=== PATIENT | male | born 1965 ===

== ENCOUNTER 2017-02-27 15:44 | Emergency (ER) | payer OTHER ==
[2017-02-27 15:58] VITALS: TEMP 98.3
[2017-02-27] MEDS ORDERED: Sodium Chloride 0.9% 1,000 ML IV STA (16:22)
[2017-02-27] MEDS ORDERED: Thiamine 100 mg/ml Inj IV STA (16:22)
--- NOTE | 2017-02-27 16:28 | ED PDOC ---
Arrival/HPI - General Historian: EMS EM Caveat: Acuity of Condition <Case Dorado - Last Filed: 02/27/17 20:22> <Tex Salas - Last Filed: 02/28/17 07:37> - General Chief Complaint: Alcohol Ingestion Time Seen by Provider: 02/27/17 16:16 - History of Present Illness Narrative History of Present Illness (Text): 02/27/17 16:20 A 43 year old male is brought into the emergency department via EMS after being found outside crawling on his hands and knee. HPI and ROS is limited due to patient's condition. (Case Dorado) Past Medical History - Provider Review Nursing Documentation Reviewed: Yes - Infectious Disease Hx of Infectious Diseases: None - Psychiatric Hx Substance Use: No <Case Dorado - Last Filed: 02/27/17 20:22> Family/Social History - Physician Review Nursing Documentation Reviewed: Yes Family/Social History: Unknown Family HX Smoking Status: Unknown If Ever Smoked Hx Alcohol Use: Yes Hx Substance Use: No <Case Dorado - Last Filed: 02/27/17 20:22> Allergies/Home Meds <Case Dorado - Last Filed: 02/27/17 20:22> <Tex Salas - Last Filed: 02/28/17 07:37> Allergies/Adverse Reactions: Allergies Unobtainable Allergy (Verified 02/27/17 16:13) Home Medications: Home Meds Medication Instructions Recorded Confirmed Unobtainable 02/27/17 02/27/17 Review of Systems - Review of Systems Systems not reviewed;Unavailable: Acuity of Condition <Case Dorado - Last Filed: 02/27/17 20:22> Physical Exam Vital Signs Reviewed: Yes Temperature: Afebrile Blood Pressure: Normal Pulse: Regular Respiratory Rate: Normal Appearance: Positive for: Well-Appearing, Non-Toxic, Comfortable Pain Distress: None Mental Status: Positive for: other (Awakes to notch painful stimuli) - Systems Exam Head: Present: Atraumatic, Normocephalic Pupils: Present: Other (dilated) Extroacular Muscles: Present: EOMI Conjunctiva: Present: Normal Mouth: Present: Moist Mucous Membranes Neck: Present: Normal Range of Motion Respiratory/Chest: Present: Clear to Auscultation, Good Air Exchange. No: Respiratory Distress, Accessory Muscle Use Cardiovascular: Present: Regular Rate and Rhythm, Normal S1, S2. No: Murmurs Abdomen: Present: Normal Bowel Sounds. No: Tenderness, Distention, Peritoneal Signs Upper Extremity: Present: Normal Inspection. No: Cyanosis, Edema Lower Extremity: Present: Normal Inspection. No: Edema Neurological: Present: GCS=15, CN II-XII Intact, Speech Normal, Other (no focal deficit; patient is able to move all 4 extremities without difficulty) Skin: Present: Warm, Dry, Normal Color. No: Rashes Psychiatric: Present: Alert, Other (awakes to notch painful stimuli) <Case Dorado - Last Filed: 02/27/17 20:22> Medical Decision Making - Lab Interpretations I have reviewed the lab results: Yes <Case Dorado - Last Filed: 02/27/17 20:22> <Tex Salas - Last Filed: 02/28/17 07:37> ED Course and Treatment: EKG: Ordered, reviewed, and independently interpreted the EKG. Rate : 77 BPM Rhythm : NSR Interpretation : Normal intervals, normal axis, no acute ischemia 02/27/17 20:22 Chest X-ray: As read by me, no acute findings. (Case Dorado) 02/28/17 07:29 Case was endorsed from pending sobriety.Pt.currently sober awake, alert.No complaints offered.Results of pts. CT scan are chronic.No change from previous.Pt. is aware of his scan results.Pt. to follow up with his PMD. ( Tex Salas) - Lab Interpretations Lab Results: 02/27/17 16:55 02/27/17 16:55 Lab Results 02/27/17 17:20: Urine Opiates Screen Negative, Urine Methadone Screen Negative, Ur Barbiturates Screen Negative, Ur Phencyclidine Scrn Negative, Ur Amphetamines Screen Negative, U Benzodiazepines Scrn Negative, U Oth Cocaine Metabols Negative, U Cannabinoids Screen Negative 02/27/17 17:20: Urine Color Yellow, Urine Appearance Clear, Urine pH 6.5, Ur Specific [place] <= 1.005, Urine Protein Negative, Urine Glucose (UA) Negative, Urine Ketones Negative, Urine Blood Negative, Urine Nitrate Negative, Urine Bilirubin Negative, Urine Urobilinogen 0.2, Ur Leukocyte Esterase Negative 02/27/17 16:55: Alcohol, Quantitative 464 H* 02/27/17 16:55: Salicylates < 1 L, Acetaminophen < 10.0 L 02/27/17 16:55: Sodium 148, Potassium 2.9 L*, Chloride 110 H, Carbon Dioxide 22 , Anion Gap 19, BUN 7, Creatinine 0.9, Est GFR ( Amer) > 60, Est GFR (Non -Af Amer) > 60, Random Glucose 107, Calcium 8.3 L, Total Bilirubin 0.3, AST 78 H , ALT 54, Alkaline Phosphatase 63, Total Creatine Kinase 72, Total Protein 7.3, Albumin 3.9, Globulin 3.4, Albumin/Globulin Ratio 1.1 02/27/17 16:55: WBC 6.5, RBC 3.88, Hgb 12.8 L, Hct 36.6 L, MCV 94.3, MCH 33.0, MCHC 35.0, RDW 14.0, Plt Count 283, MPV 10.1, Gran % 40.9 L, Lymph % (Auto) 51.7 H, [place] % (Auto) 6.0, Eos % (Auto) 0.8 L, Baso % (Auto) 0.6, Gran # 2.64, Lymph # 3.3, [place] # 0.4, Eos # 0.1, Baso # 0.04 - RAD Interpretation Radiology Orders: 02/27/17 16:21 HEAD W/O CONTRAST [CT] Stat 02/27/17 18:28 CHEST PORTABLE [RAD] Stat - Medication Orders Current Medication Orders: Discontinued Medications Sodium Chloride (Sodium Chloride 0.9%) 1,000 mls @ 999 mls/hr IV .Q1H1M STA Stop: 02/27/17 17:22 Last Admin: 02/27/17 16:55 Dose: 999 mls/hr Potassium Chloride (Potassium Chloride 20 Meq/100 Ml) 20 meq in 100 mls @ 50 mls/hr IVPB Q2H LARRY Stop: 02/27/17 22:29 Last Admin: 02/28/17 00:46 Dose: Magnesium Sulfate 2 gm/ Sodium (Chloride) 104 mls @ 102 mls/hr IVPB ONCE ONE Stop: 02/27/17 19:28 Last Admin: 02/28/17 00:47 Dose: Lorazepam (Ativan) Confirm Administered Dose 2 mg .ROUTE .STK-MED ONE Stop: 02/27/17 17:19 Last Admin: 02/27/17 17:21 Dose: 2 mg Thiamine HCl (Vitamin B1 Inj) 100 mg IV STAT STA Stop: 02/27/17 16:23 Last Admin: 02/27/17 16:36 Dose: 100 mg - Scribe Statement The provider has reviewed the documentation as recorded by the Scribe <Case Dorado - Last Filed: 02/27/17 20:22> <Tex Salas - Last Filed: 02/28/17 07:37> - Scribe Statement Carol Swanson Provider Scribe Attestation: All medical record entries made by the Scribe were at my direction and personally dictated by me. I have reviewed the chart and agree that the record accurately reflects my personal performance of the history, physical exam, medical decision making, and the department course for this patient. I have also personally directed, reviewed, and agree with the discharge instructions and disposition. (Case Dorado) Disposition/Present on Arrival - Present on Arrival History of DVT/PE: No History of Uncontrolled Diabetes: No Urinary Catheter: No History of Decub. Ulcer: No History Surgical Site Infection Following: None <Case Dorado - Last Filed: 02/27/17 20:22> - Present on Arrival Any Indicators Present on Arrival: No - Disposition Have Diagnosis and Disposition been Completed?: Yes Disposition Time: 07:28 Patient Plan: Discharge <Tex Salas - Last Filed: 02/28/17 07:37> - Disposition Diagnosis: Alcohol intoxication Disposition: HOME/ ROUTINE Patient Problems: Current Active Problems Problem Status Onset Alcohol intoxication Acute Condition: GOOD
[2017-02-27 17:14] LABS: ADD MANUAL DIFF? NO
[2017-02-27 17:18] LABS: BASO # 0.04 K/mm3 (0.0-2.0); BASO % 0.6 % (0.0-3.0); EOS # 0.1 (0.0-0.7); EOS % 0.8 % (1.5-5.0); GRAN # 2.64 (1.4-6.5); GRAN % 40.9 % (50.0-68.0); HEMATOCRIT 36.6 % (42.0-52.0); LYMPH # 3.3 (1.2-3.4); LYMPH % 51.7 % (22.0-35.0); MEAN CELL VOLUME 94.3 fL (80.0-105.0); MEAN PLATELET VOLUME 10.1 fl (7.0-11.0); MONO # 0.4 (0.1-0.6); PLATELET COUNT 283 10^3/uL (120.0-450.0); WHITE BLOOD COUNT 6.5 10^3/ul (4.5-11.0)
[2017-02-27 17:33] LABS: ALB/GLOB RATIO 1.1 (1.1-1.8); ALKALINE PHOSPHATASE 63 U/L (38-133); ALT/SGPT 54 U/L (7-56); AST/SGOT 78 U/L (15-59); BILIRUBIN,TOTAL 0.3 mg/dL (0.2-1.3); BLOOD UREA NITROGEN 7 mg/dL (7-21); CALCIUM 8.3 mg/dL (8.4-10.5); CARBON DIOXIDE 22 mmol/L (21-33); CHLORIDE 110 mmol/L (98-107); GFR AFRICAN-AMERICAN > 60; GLUCOSE,RANDOM 107 mg/dL (70-110); SODIUM 148 mmol/L (132-148); TOTAL PROTEIN 7.3 g/dL (5.8-8.3)
[2017-02-27 17:42] LABS: PH,URINE 6.5 (4.7-8.0); URINE BILIRUBIN NEGATIVE (NEGATIVE); URINE BLOOD NEGATIVE (NEGATIVE); URINE GLUCOSE (UA) NEGATIVE (NEGATIVE); URINE KETONE NEGATIVE (NEGATIVE); URINE LEUKOCYTE ESTERASE NEGATIVE Leu/uL (NEGATIVE); URINE PROTEIN NEGATIVE mg/dL (<30 mg/dL); URINE UROBILINOGEN 0.2 E.U./dL (<1 E.U./dL)
[2017-02-27 17:44] LABS: URINE APPEARANCE CLEAR (CLEAR); URINE COLOR YELLOW (YELLOW)
[2017-02-27 18:14] LABS: POTASSIUM 2.9 mmol/L (3.6-5.0)
[2017-02-27] MEDS ORDERED: Magnesium Sulfate 2 GM in Sodium Chloride 0.9% 100 ML IVPB ONE (18:27)
[2017-02-27 20:01] VITALS: O2SAT 98
--- NOTE | 2017-02-27 22:06 | CT ---
EXAM: CT Head Without Intravenous Contrast CLINICAL HISTORY: 43 years old, male; Signs and symptoms; Altered mental status/memory loss; Confusion or disorientation; Additional info: AMS TECHNIQUE: Axial computed tomography images of the head/brain without intravenous contrast. This CT exam was performed using one or more of the following dose reduction techniques: automated exposure control, adjustment of the mA and/or kV according to patient size, and/or use of iterative reconstruction technique. COMPARISON: No relevant prior studies available. FINDINGS: Limitations: Motion artifact - mild. Brain: Prominent CSF density extra-axial spaces with mild mass effect along frontal parietal temporal convexities, up to 1.4 cm on LEFT, up to 0.9 cm on RIGHT (image 36). No definite intracranial hemorrhage. No definite edema. Ventricles: No hydrocephalus. Bones/joints: No acute fracture. Soft tissues: Unremarkable. Sinuses: No acute sinusitis. Mastoid air cells: Minimal fluid within inferior RIGHT mastoid. Orbits: Unremarkable as visualized. IMPRESSION: 1. Subdural hygromas, age indeterminate. Compare with prior examinations if available. 2. Incidental/non-acute findings are described above.
[2017-02-28 07:38] VITALS: BP 157/85; PULSE 81; RESP 16
--- NOTE | 2017-02-28 08:09 | RAD ---
HISTORY: ams COMPARISON: No prior. FINDINGS: LUNGS: Poor inspiration with low lung volumes, mild crowded bronchovascular markings and mild bibasilar atelectasis. PLEURA: No significant pleural effusion identified, no pneumothorax apparent. CARDIOVASCULAR: Heart appears upper limits of normal/ borderline enlarged OSSEOUS STRUCTURES: No significant abnormalities. VISUALIZED UPPER ABDOMEN: Normal. OTHER FINDINGS: None. IMPRESSION: Poor inspiration with low lung volumes, mild crowded bronchovascular markings and mild bibasilar atelectasis.
--- NOTE | 2017-02-28 17:40 | CARD ---
APPROVED REPORT EKG Measurement Heart [id number] <Conclusion> Normal sinus rhythm Normal ECG
== END 2017-02-28 07:44 | disposition home or self-care (01) ==
LOC: EDBD 15:44 → ED 15:44
DX: F10.129 Alcohol abuse with intoxication, unspecified (principal); Y90.8 Blood alcohol level of 240 mg/100 ml or more
CPT/HCPCS: 70450; 71010; 80053; 80320; 80324; 80329; 80345; 80346; 80349; 80353; 80358; 80361; 81003; 82550; 83992; 85025; 93005; 96361; 96374; 99285; J2060; J3411; J3480; J7040